=== PATIENT | female | born 1970 | race Caucasian/White ===

== ENCOUNTER → 2018-01-26 | Outpatient (CLI) | payer BC ==
[2018-01-27 09:40] LABS: Candida species (DNA Probe) Negative (NEGATIVE); G. vaginalis (DNA Probe) Positive (NEGATIVE); T. vaginalis (DNA Probe) Negative (NEGATIVE)
== END ==
LOC: LAB 16:31
PROVIDERS: Nurse Practitioner Family
DX: N89.8 Other specified noninflammatory disorders of vagina (principal)
CPT/HCPCS: 87480; 87510; 87660

== ENCOUNTER → 2018-02-14 | Outpatient (CLI) | payer BC | END | disposition home or self-care (01) | LOC: OLS 13:31 | DX: J02.9 Acute pharyngitis, unspecified (principal); N76.0 Acute vaginitis | CPT/HCPCS: 87070; 87081; 87205; 87430 ==

== ENCOUNTER → 2018-02-16 | Outpatient (CLI) | payer BC | END | disposition home or self-care (01) | LOC: OLS 14:48 | DX: N76.2 Acute vulvitis (principal) | CPT/HCPCS: 87070; 87205 ==

== ENCOUNTER → 2018-02-28 | Outpatient (CLI) | payer BC | END | disposition home or self-care (01) | LOC: PLD 08:27 → LAB SHORT 08:27 | DX: C53.9 Malignant neoplasm of cervix uteri, unspecified (principal) | CPT/HCPCS: 88305 ==